=== PATIENT | female | born 1960 | race Caucasian/White ===

== ENCOUNTER 2017-11-11 12:21 | Emergency (ER) | payer OTHER ==
[2017-11-11] MEDS ORDERED: KETOROLAC 30 MG INJ IM (14:00)
[2017-11-11] MEDS: DIAZEPAM 5 MG TAB PO (14:34)
[2017-11-11] MEDS: KETOROLAC 30 MG INJ IV (14:34)
[2017-11-11] MEDS: SOD CHLORIDE 0.9% 1,000 ML IV (14:36)
[2017-11-11 14:55] LABS: ADD MAN DIFF? NO
[2017-11-11 15:03] LABS: WHITE BLOOD COUNT 8.8 10^3/ul (4.8-10.8)
[2017-11-11 15:03] LABS: BASOPHIL # 0.1 10^3/ul (0.0-0.1); BASOPHILS % 0.6 % (0.0-2.0); EOSINOPHILS # 0.2 10^3/ul (0.0-0.5); EOSINOPHILS % 2.6 % (0.0-7.0); HEMATOCRIT 43.7 % (37.0-47.0); HEMOGLOBIN 14.1 g/dl (12.0-16.0); LYMPHOCYTES # 3.4 10^3/ul (0.8-2.9); LYMPHOCYTES % 38.6 % (15.0-51.0); MEAN CORPUSCULAR HEMOGLOBIN 27.5 pg (29.0-33.0); MEAN CORPUSCULAR HGB CONC 32.3 g/dl (32.0-37.0); MEAN CORPUSCULAR VOLUME 85.2 fl (82.0-101.0); MEAN PLATELET VOLUME 12.5 fl (7.4-10.4); MONOCYTE # 0.6 10^3/ul (0.3-0.9); MONOCYTES % 7.2 % (0.0-11.0); NEUTROPHIL # 4.5 10^3/ul (1.6-7.5); NEUTROPHILS % 50.8 % (39.0-77.0); PLATELET COUNT 175 10^3/UL (140-415); RED BLOOD COUNT 5.13 10^6/ul (4.20-5.40); RED CELL DISTRIBUTION WIDTH 14.7 % (11.5-14.5)
[2017-11-11 15:23] LABS: ALANINE AMINOTRANSFERASE 34 IU/L (13-69); ALBUMIN 4.5 g/dl (3.3-4.9); ALBUMIN/GLOBULIN RATIO 1.21; ALKALINE PHOSPHATASE 98 IU/L (42-121); ANION GAP 16 (8-16); ASPARTATE AMINO TRANSFERASE 42 IU/L (15-46); BILIRUBIN,INDIRECT 0.4 mg/dl (0-1.1); BILIRUBIN,TOTAL 0.4 mg/dl (0.2-1.3); BLOOD UREA NITROGEN 11 mg/dl (7-20); CARBON DIOXIDE 31 mmol/L (21-31); CHLORIDE 99 mmol/L (97-110); CREATININE 0.54 mg/dl (0.44-1.00); GLUCOSE 232 mg/dl (70-220); LIPASE 70 U/L (23-300); POTASSIUM 3.9 mmol/L (3.5-5.1); SODIUM 142 mmol/L (135-144); TOTAL PROTEIN 8.2 g/dl (6.1-8.1)
[2017-11-11 15:57] LABS: ADD UMIC NO; UR ASCORBIC ACID NEGATIVE (NEGATIVE); UR BILIRUBIN (Dip) NEGATIVE (NEGATIVE); UR BLOOD (Dip) NEGATIVE (NEGATIVE); UR CLARITY CLEAR (CLEAR); UR COLOR YELLOW (YELLOW); UR GLUCOSE (Dip) NEGATIVE (NEGATIVE); UR KETONES (Dip) NEGATIVE (NEGATIVE); UR LEUKOCYTE ESTERASE (Dip) NEGATIVE Leu/ul (NEGATIVE); UR NITRITE (Dip) NEGATIVE (NEGATIVE); UR SPECIFIC GRAVITY (Dip) 1.008 (1.003-1.030); UR TOTAL PROTEIN (Dip) NEGATIVE (NEGATIVE); UR UROBILINOGEN (Dip) NEGATIVE (NEGATIVE)
[2017-11-11] MEDS: morphine 4 MG/ML VIAL IV (16:44)
[2017-11-11] MEDS: ONDANSETRON 4 MG INJ IV (16:56)
== END 2017-11-11 17:14 | disposition home or self-care (01) ==
LOC: FTE 12:21
DX: M54.41 Lumbago with sciatica, right side (principal); K59.00 Constipation, unspecified; E11.9 Type 2 diabetes mellitus without complications; J45.909 Unspecified asthma, uncomplicated; I10 Essential (primary) hypertension; Z79.84 Long term (current) use of oral hypoglycemic drugs
CPT/HCPCS: 36415; 74176; 80053; 81003; 83690; 85025; 96374; 96375; 99285-25

== ENCOUNTER 2017-11-14 22:02 | Inpatient (IN) | payer OTHER ==
[2017-11-14] MEDS ORDERED: ACETAMINOPHEN 325 MG TAB PO (23:30)
[2017-11-14] MEDS ORDERED: NACL 0.9% 3 ML SYG IV (23:30)
[2017-11-14] MEDS ORDERED: GLUCOSE GEL 15 GRAM TUBE BUCCAL (23:45)
[2017-11-14] MEDS ORDERED: DEXTROSE 50% 50 ML SYRINGE IV ×2 (23:45)
[2017-11-14] MEDS ORDERED: GLUCOSE GEL 15 GRAM TUBE PO ×2 (23:45)
[2017-11-14] MEDS ORDERED: GLUCAGON 1 MG INJ IM (23:45)
[2017-11-15] MEDS: DIAZEPAM 5 MG/ML SYG IV (00:16)
[2017-11-15] MEDS: POLYETHYLENE GLYCOL 17 GM PACKET PO ×2 (00:19→09:54)
[2017-11-15 01:09] LABS: ADD MAN DIFF? NO
[2017-11-15 01:23] LABS: WHITE BLOOD COUNT 9.1 10^3/ul (4.8-10.8)
[2017-11-15 01:23] LABS: BASOPHILS % 0.4 % (0.0-2.0); EOSINOPHILS # 0.3 10^3/ul (0.0-0.5); EOSINOPHILS % 2.8 % (0.0-7.0); HEMATOCRIT 37.8 % (37.0-47.0); HEMOGLOBIN 12.4 g/dl (12.0-16.0); LYMPHOCYTES # 3.7 10^3/ul (0.8-2.9); LYMPHOCYTES % 40.9 % (15.0-51.0); MEAN CORPUSCULAR HEMOGLOBIN 27.9 pg (29.0-33.0); MEAN CORPUSCULAR HGB CONC 32.8 g/dl (32.0-37.0); MEAN CORPUSCULAR VOLUME 85.1 fl (82.0-101.0); MEAN PLATELET VOLUME 12.6 fl (7.4-10.4); MONOCYTE # 0.9 10^3/ul (0.3-0.9); MONOCYTES % 9.6 % (0.0-11.0); NEUTROPHIL # 4.2 10^3/ul (1.6-7.5); NEUTROPHILS % 46.1 % (39.0-77.0); PLATELET COUNT 170 10^3/UL (140-415); RED BLOOD COUNT 4.44 10^6/ul (4.20-5.40); RED CELL DISTRIBUTION WIDTH 14.4 % (11.5-14.5)
[2017-11-15 01:48] LABS: CHOLESTEROL 117 mg/dl (100-200)
[2017-11-15 01:48] LABS: CHOL/HDL RATIO 2.6 RATIO; HDL CHOLESTEROL 44 mg/dl (37-92); LDL CHOLESTEROL,CALCULATED 52 mg/dl; TRIGLYCERIDES 103 mg/dl (0-149)
[2017-11-15 01:50] LABS: ALANINE AMINOTRANSFERASE 26 IU/L (13-69); ALBUMIN 3.4 g/dl (3.3-4.9); ALKALINE PHOSPHATASE 95 IU/L (42-121); ANION GAP 10 (8-16); ASPARTATE AMINO TRANSFERASE 34 IU/L (15-46); BILIRUBIN,INDIRECT 0.4 mg/dl (0-1.1); BILIRUBIN,TOTAL 0.4 mg/dl (0.2-1.3); BLOOD UREA NITROGEN 9 mg/dl (7-20); CALCIUM 8.7 mg/dl (8.4-10.2); CARBON DIOXIDE 33 mmol/L (21-31); CHLORIDE 101 mmol/L (97-110); CREATININE 0.59 mg/dl (0.44-1.00); GLUCOSE 143 mg/dl (70-220); POTASSIUM 3.9 mmol/L (3.5-5.1); SODIUM 140 mmol/L (135-144); TOTAL PROTEIN 6.8 g/dl (6.1-8.1)
[2017-11-15] MEDS: ACCU-CHEK XX (02:00)
[2017-11-15] MEDS: KETOROLAC 30 MG INJ IV ×2 (03:09→19:49)
[2017-11-15] MEDS: CYCLOBENZAPRINE 10 MG TAB PO ×3 (03:10→12:37)
[2017-11-15 06:02] LABS: ADD MAN DIFF? NO
[2017-11-15 06:08] LABS: BASOPHILS % 0.5 % (0.0-2.0); EOSINOPHILS # 0.3 10^3/ul (0.0-0.5); EOSINOPHILS % 3.4 % (0.0-7.0); HEMOGLOBIN 12.2 g/dl (12.0-16.0); MEAN CORPUSCULAR HEMOGLOBIN 28.2 pg (29.0-33.0); MEAN CORPUSCULAR VOLUME 85.5 fl (82.0-101.0); MEAN PLATELET VOLUME 12.4 fl (7.4-10.4); MONOCYTE # 0.9 10^3/ul (0.3-0.9); MONOCYTES % 9.6 % (0.0-11.0); NEUTROPHIL # 3.7 10^3/ul (1.6-7.5); NEUTROPHILS % 41.4 % (39.0-77.0); PLATELET COUNT 163 10^3/UL (140-415); RED BLOOD COUNT 4.33 10^6/ul (4.20-5.40); RED CELL DISTRIBUTION WIDTH 14.5 % (11.5-14.5)
[2017-11-15 06:08] LABS: WHITE BLOOD COUNT 8.8 10^3/ul (4.8-10.8)
[2017-11-15] MEDS ORDERED: POLYETHYLENE GLYCOL 17 GM PACKET PO (06:30)
[2017-11-15 06:32] LABS: ALANINE AMINOTRANSFERASE 29 IU/L (13-69); ALBUMIN 3.6 g/dl (3.3-4.9); ALBUMIN/GLOBULIN RATIO 1.02; ALKALINE PHOSPHATASE 98 IU/L (42-121); ANION GAP 14 (8-16); ASPARTATE AMINO TRANSFERASE 33 IU/L (15-46); BILIRUBIN,INDIRECT 0.6 mg/dl (0-1.1); BILIRUBIN,TOTAL 0.6 mg/dl (0.2-1.3); BLOOD UREA NITROGEN 10 mg/dl (7-20); CALCIUM 8.5 mg/dl (8.4-10.2); CARBON DIOXIDE 32 mmol/L (21-31); CHLORIDE 100 mmol/L (97-110); CREATININE 0.65 mg/dl (0.44-1.00); GLUCOSE 139 mg/dl (70-220); MAGNESIUM 1.8 mg/dl (1.7-2.5); POTASSIUM 4.2 mmol/L (3.5-5.1); SODIUM 142 mmol/L (135-144); TOTAL PROTEIN 7.1 g/dl (6.1-8.1)
[2017-11-15 07:17] LABS: HEMOGLOBIN A1C 8.7 % (0-5.9)
[2017-11-15] MEDS: INSULIN ASPART [NOVOLOG] 3 ML PEN SC ×4 (08:00→21:00)
[2017-11-15] MEDS: LOSARTAN 50 MG TAB PO (09:54)
[2017-11-15] MEDS: ENOXAPARIN 40 MG/0.4 ML SYG SC (17:00)
[2017-11-15] MEDS: HYDROCODONE/APAP (5/325) TAB PO (20:57)
[2017-11-15] MEDS: GABAPENTIN 300 MG CAP PO (20:57)
[2017-11-16] MEDS: ACCU-CHEK XX (02:00)
[2017-11-16] MEDS: KETOROLAC 30 MG INJ IV ×2 (02:44→08:55)
[2017-11-16] MEDS: HYDROCODONE/APAP (5/325) TAB PO ×2 (06:20→20:20)
[2017-11-16] MEDS: INSULIN ASPART [NOVOLOG] 3 ML PEN SC ×4 (08:09→20:23)
[2017-11-16] MEDS: LOSARTAN 50 MG TAB PO (08:54)
[2017-11-16] MEDS: POLYETHYLENE GLYCOL 17 GM PACKET PO (08:55)
[2017-11-16] MEDS: GABAPENTIN 300 MG CAP PO (08:55)
[2017-11-16] MEDS: ENOXAPARIN 40 MG/0.4 ML SYG SC (12:00)
[2017-11-16] MEDS: METHADONE 5 MG TAB PO ×2 (12:05→18:45)
[2017-11-16] MEDS: GABAPENTIN 400 MG CAP PO ×2 (12:06→20:20)
[2017-11-16] MEDS ORDERED: LORAZEPAM 2 MG INJ IV (12:30)
[2017-11-16 13:35] LABS: HEPATITIS B SURFACE ANTIGEN NEGATIVE (NEGATIVE)
[2017-11-16 13:52] LABS: HEPATITIS C VIRAL ANTIBODY NEGATIVE (NEGATIVE)
[2017-11-16] MEDS: LORAZEPAM 2 MG INJ IV (13:55)
[2017-11-17] MEDS: ACCU-CHEK XX (02:00)
[2017-11-17] MEDS: METHADONE 5 MG TAB PO ×3 (04:07→20:55)
[2017-11-17] MEDS: OXYCODONE/ACETAMINOPHEN (5/325) TAB PO (05:39)
[2017-11-17] MEDS: INSULIN ASPART [NOVOLOG] 3 ML PEN SC ×4 (08:18→20:50)
[2017-11-17] MEDS: LOSARTAN 50 MG TAB PO (09:00)
[2017-11-17] MEDS: POLYETHYLENE GLYCOL 17 GM PACKET PO (09:10)
[2017-11-17] MEDS: GABAPENTIN 400 MG CAP PO ×3 (09:10→20:55)
[2017-11-17] MEDS: ENOXAPARIN 40 MG/0.4 ML SYG SC (09:14)
[2017-11-17] MEDS: LORAZEPAM 2 MG INJ IV (16:00)
[2017-11-17] MEDS: ZOLPIDEM 5 MG TAB PO (22:52)
[2017-11-18] MEDS: ACCU-CHEK XX (02:00)
[2017-11-18] MEDS: METHADONE 5 MG TAB PO (04:18)
[2017-11-18] MEDS: POLYETHYLENE GLYCOL 17 GM PACKET PO (08:33)
[2017-11-18] MEDS: GABAPENTIN 400 MG CAP PO (08:33)
[2017-11-18] MEDS: LOSARTAN 50 MG TAB PO (08:33)
[2017-11-18] MEDS: INSULIN ASPART [NOVOLOG] 3 ML PEN SC ×4 (08:35→21:34)
[2017-11-18] MEDS: ENOXAPARIN 40 MG/0.4 ML SYG SC (08:40)
[2017-11-18] MEDS: CELECOXIB 100 MG CAP PO ×2 (12:33→21:32)
[2017-11-18] MEDS: DOCUSATE SODIUM 100 MG CAP PO (12:33)
[2017-11-18] MEDS: OXYCODONE/ACETAMINOPHEN (5/325) TAB PO (18:05)
[2017-11-19] MEDS: ACCU-CHEK XX (02:00)
[2017-11-19] MEDS: OXYCODONE/ACETAMINOPHEN (5/325) TAB PO ×2 (02:18→06:49)
[2017-11-19] MEDS: POLYETHYLENE GLYCOL 17 GM PACKET PO (08:46)
[2017-11-19] MEDS: DOCUSATE SODIUM 100 MG CAP PO (08:46)
[2017-11-19] MEDS: CELECOXIB 100 MG CAP PO (08:46)
[2017-11-19] MEDS: LOSARTAN 50 MG TAB PO (08:46)
[2017-11-19] MEDS: ENOXAPARIN 40 MG/0.4 ML SYG SC (08:48)
[2017-11-19] MEDS: INSULIN ASPART [NOVOLOG] 3 ML PEN SC ×2 (08:48→12:16)
== END 2017-11-19 15:05 | disposition home health service (06) | DRG 552 ==
LOC: PP2 22:02
PROVIDERS: Internal Medicine
DX: M51.16 Intervertebral disc disorders with radiculopathy, lumbar region (principal); E11.65 Type 2 diabetes mellitus with hyperglycemia; I10 Essential (primary) hypertension; M47.26 Other spondylosis with radiculopathy, lumbar region; J45.909 Unspecified asthma, uncomplicated; K59.03 Drug induced constipation; R05 Cough; T44.5X5A Adverse effect of predominantly beta-adrenoreceptor agonists, initial encounter; T40.2X5A Adverse effect of other opioids, initial encounter; D25.0 Submucous leiomyoma of uterus; M25.48 Effusion, other site; Y92.019 Unspecified place in single-family (private) house as the place of occurrence of the external cause; E66.9 Obesity, unspecified; Z68.33 Body mass index [BMI] 33.0-33.9, adult; Z79.4 Long term (current) use of insulin; Z90.49 Acquired absence of other specified parts of digestive tract
CPT/HCPCS: 72100; 72158; 80053; 80061; 82962; 83036; 83735; 84443; 85025; 86803; 87340; 97116; 97162

== ENCOUNTER 2017-11-27 14:57 | Outpatient (CLI) | payer OTHER | END 2017-11-27 16:09 | disposition home or self-care (01) | LOC: DCC 14:57 | DX: M54.5 Low back pain (principal); E11.8 Type 2 diabetes mellitus with unspecified complications; I10 Essential (primary) hypertension; E66.9 Obesity, unspecified | CPT/HCPCS: G0463 ==

== ENCOUNTER 2017-12-11 15:24 | Outpatient (CLI) | payer OTHER | END 2017-12-11 16:10 | disposition home or self-care (01) | LOC: DCC 15:24 | DX: M54.9 Dorsalgia, unspecified (principal); I10 Essential (primary) hypertension; E11.8 Type 2 diabetes mellitus with unspecified complications; M06.9 Rheumatoid arthritis, unspecified; E66.9 Obesity, unspecified; Z79.84 Long term (current) use of oral hypoglycemic drugs | CPT/HCPCS: G0463 ==

== ENCOUNTER 2018-03-12 22:45 | Emergency (ER) | payer OTHER ==
[2018-03-13] MEDS: KETOROLAC 30 MG INJ IM (00:15)
[2018-03-13] MEDS: HYDROCODONE/APAP (5/325) TAB PO (00:16)
[2018-03-13] MEDS: ONDANSETRON (ODT) 4 MG TAB ODT (00:20)
== END 2018-03-13 01:05 | disposition home or self-care (01) ==
LOC: FTE 22:45
DX: M54.5 Low back pain (principal); J45.909 Unspecified asthma, uncomplicated; I10 Essential (primary) hypertension
CPT/HCPCS: 96372; 99284-25

== ENCOUNTER 2018-10-17 17:04 | Emergency (ER) | payer OTHER ==
[2018-10-17] MEDS: morphine 4 MG/ML VIAL IV (19:47)
[2018-10-17] MEDS: SOD CHLORIDE 0.9% 1,000 ML IV (19:48)
[2018-10-17] MEDS: ONDANSETRON 4 MG INJ IV (19:48)
[2018-10-17 19:52] LABS: WHITE BLOOD COUNT 10.7 10^3/ul (4.8-10.8)
[2018-10-17 19:52] LABS: ABNORMAL IP MESSAGE 1; HEMATOCRIT 41.9 % (37.0-47.0); HEMOGLOBIN 13.8 g/dl (12.0-16.0); MEAN CORPUSCULAR HEMOGLOBIN 28.6 pg (29.0-33.0); MEAN CORPUSCULAR HGB CONC 32.9 g/dl (32.0-37.0); MEAN CORPUSCULAR VOLUME 86.7 fl (82.0-101.0); MEAN PLATELET VOLUME 10.5 fl (7.4-10.4); PLATELET COUNT 240 10^3/UL (140-415); RED BLOOD COUNT 4.83 10^6/ul (4.20-5.40); RED CELL DISTRIBUTION WIDTH 13.9 % (11.5-14.5)
[2018-10-17 19:55] LABS: ADD MAN DIFF? YES; POSITIVE DIFF @See below
[2018-10-17 20:08] LABS: ANION GAP 9 (5-13); BLOOD UREA NITROGEN 22 mg/dl (7-20); CALCIUM 10.4 mg/dl (8.4-10.2); CARBON DIOXIDE 29 mmol/L (21-31); CHLORIDE 102 mmol/L (97-110); CREATININE 0.79 mg/dl (0.44-1.00); Estimated GFR > 60 mL/min (>60); GLUCOSE 150 mg/dl (70-220); POTASSIUM 4.2 mmol/L (3.5-5.1); SODIUM 140 mmol/L (135-144)
[2018-10-17 20:20] LABS: TROPONIN-I < 0.012 ng/ml (0.000-0.120)
[2018-10-17 20:23] LABS: ANISOCYTOSIS 1+ (0-0); EOSINOPHILS % (M) 1 % (0-7); LYMPHOCYTES #M 6.4 10^3/ul (0.8-2.9); LYMPHOCYTES % (M) 60 % (15-51); MICROCYTOSIS 1+ (0-0); MONOCYTE #M 0.2 10^3/ul (0.3-0.9); MONOCYTES % (M) 2 % (0-11); PLATELET ESTIMATE NORMAL; REACTIVE LYMPHOCYTES% (M) 10 % (0-0); SEGMENTED NEUTROPHILS (M) % 27 % (39-77); SMUDGE%M 7 % (0-0)
[2018-10-17] MEDS: ONDANSETRON (ODT) 4 MG TAB ODT (22:12)
[2018-10-17] MEDS: HYDROCODONE/APAP (10/325) TAB PO (22:13)
== END 2018-10-17 22:27 | disposition home or self-care (01) ==
LOC: E/R 17:04
DX: S40.011A Contusion of right shoulder, initial encounter (principal); R55 Syncope and collapse; S39.92XA Unspecified injury of lower back, initial encounter; I10 Essential (primary) hypertension; J45.909 Unspecified asthma, uncomplicated; W01.198A Fall on same level from slipping, tripping and stumbling with subsequent striking against other object, initial encounter; Y92.031 Bathroom in apartment as the place of occurrence of the external cause; Z79.84 Long term (current) use of oral hypoglycemic drugs
CPT/HCPCS: 36415; 70450; 70486; 72125; 72128; 72131; 73030-RT; 80048; 82962; 84484; 85025; 93005; 96374; 96375; 99285-25